=== PATIENT | male | born 1995 | race Caucasian/White ===

== ENCOUNTER 2019-10-27 05:07 | Emergency (ER) | payer SELFPAY ==
[~2019-10-27] VITALS: Ht 167.6 cm; Wt 104.3 kg
[2019-10-27 05:07] VITALS: BP_SYST 145
--- NOTE | 2019-10-27 05:07 | NUR ---
Patient to [facility] for evaluation. Side rails up.
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
--- NOTE | 2019-10-27 05:10 | NUR ---
ER Dr. GRESHAM at bedside examining patient.
--- NOTE | 2019-10-27 05:17 | NUR ---
Patient AND [facility] OFFICER given written and verbal discharge instructions and verbalizes understanding. ER MD GRESHAM discussed with patient the results and treatment provided. Patient in stable condition. ID arm band removed. NO RX given. Patient educated on pain management and to follow up with PMD. Pain Scale 0/10 Opportunity for questions provided and answered.
== END 2019-10-27 05:17 ==
LOC: SED 05:07
DX: S46.911A Strain of unspecified muscle, fascia and tendon at shoulder and upper arm level, right arm, initial encounter (principal); X50.1XXA Overexertion from prolonged static or awkward postures, initial encounter; Y93.89 Activity, other specified; Y92.89 Other specified places as the place of occurrence of the external cause; Y99.8 Other external cause status
CPT/HCPCS: 99283